=== PATIENT | female | born 2000 | race Two or more races ===

== ENCOUNTER 2022-12-16 15:49 | Emergency (ER) | payer OTHER ==
[~2022-12-16] VITALS: Ht 154.9 cm; Wt 54.4 kg
== END 2022-12-16 19:11 | disposition home or self-care (01) ==
LOC: ER 15:49
DX: S50.02XA Contusion of left elbow, initial encounter (principal); S90.02XA Contusion of left ankle, initial encounter; S50.12XA Contusion of left forearm, initial encounter; W05.1XXA Fall from non-moving nonmotorized scooter, initial encounter; Y93.9 Activity, unspecified; Y92.9 Unspecified place or not applicable; Y99.9 Unspecified external cause status